=== PATIENT | male | born 1995 | race Caucasian/White ===

== ENCOUNTER 2024-11-18 08:50 | Emergency (ER) | payer MEDICAID ==
[~2024-11-18] VITALS: Ht 170.2 cm; Wt 68.0 kg
[2024-11-18 09:13] VITALS: O2SAT 100
[2024-11-18] MEDS ORDERED: LIDO700A30 TP (09:57)
[2024-11-18] MEDS ORDERED: ACET-2708 MT (09:57)
[2024-11-18] MEDS ORDERED: IBUP-2029 MT (09:57)
[2024-11-18] MEDS: KETOROLAC 30MG/ML VIAL IM ONE (10:02)
[2024-11-18 10:30] VITALS: BP 110/51; PULSE 64; RESP 18; TEMP 37.1; O2SAT 100
== END 2024-11-18 10:35 | disposition home or self-care (01) ==
LOC: ER 08:50
DX: M54.50 Low back pain, unspecified (principal); Z79.899 Other long term (current) drug therapy; Z98.890 Other specified postprocedural states
CPT/HCPCS: 96372; 99283; J1885; Z7610